=== PATIENT | male | born 1995 | race Caucasian/White ===

== ENCOUNTER 2018-01-31 12:37 | Emergency (ER) | payer OTHER ==
[~2018-01-31] VITALS: Ht 180.3 cm; Wt 72.6 kg
== END 2018-01-31 14:51 | disposition home or self-care (01) ==
LOC: ER 12:37
DX: T78.1XXA Other adverse food reactions, not elsewhere classified, initial encounter (principal); X58.XXXA Exposure to other specified factors, initial encounter